=== PATIENT | male | born 1980 | race Asian ===

== ENCOUNTER 2019-02-09 09:00 | Emergency (ER) | payer OTHER ==
[~2019-02-09] VITALS: Ht 167.6 cm; Wt 68.0 kg
[2019-02-09 10:06] LABS: HEMATOCRIT. 40.4 % (42.0-52.0); MEAN CORPUSCULAR HEMOGLOBIN 27.2 pg (28.0-32.0); MEAN CORPUSCULAR VOLUME 84.7 fL (80.0-94.0); MEAN PLATELET VOLUME 8.9 fl (7.4-10.4); PLATELET 169 x1000/uL (130-400); RED BLOOD CELL COUNT 4.77 mill/uL (4.7-6.1); RED CELL DISTRIBUTION WIDTH 15.9 % (11.6-14.6)
[2019-02-09 10:13] LABS: CHLORIDE 103 mEq/L (98-107)
[2019-02-09 10:17] LABS: ETHANOL BLOOD < 10 mg/dL
[2019-02-09 10:39] LABS: PLATELET ESTIMATE NORMAL
[2019-02-09 20:22] VITALS: BP 136/68
== END 2019-02-09 21:29 | disposition home or self-care (01) ==
LOC: ER 09:00
DX: R41.82 Altered mental status, unspecified (principal); R45.1 Restlessness and agitation; F17.210 Nicotine dependence, cigarettes, uncomplicated; Z86.59 Personal history of other mental and behavioral disorders
CPT/HCPCS: 36415; 80053; 80307; 80320; 80329; 85025; 99283; Z7610; G0480